=== PATIENT | female | born 1975 | race Two or more races ===

== ENCOUNTER 2020-06-24 20:00 | Emergency (ER) | payer SELFPAY ==
[~2020-06-24] VITALS: Ht 154.9 cm; Wt 75.0 kg
--- NOTE | 2020-06-24 20:15 | NUR ---
TO ED ROOM 31 PER WC. PT CURRENTLY VOMITING. C/O RT FLANK PAIN. STARTED TODAY. HX KIDNEY STONES. DENIES PAIN, BURNING, DIFFICULTY W/ URINATION. 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 TOOK PERCOCET AT 1855 (NOT PT'S RX). LAST ORAL INTAKE: 1100
[2020-06-24] MEDS ORDERED: SODIUM CHLORIDE FLUSH 10ML SYR IVF ONE (20:30)
[2020-06-24] MEDS ORDERED: ONDANSETRON 2MG/ML, 2ML IVPush ONE (20:30)
[2020-06-24] MEDS ORDERED: SODIUM CHLORIDE 0.9% 1,000ML IV ONE (20:30)
--- NOTE | 2020-06-24 20:30 | NUR ---
AMBULATORY TO [facility] W/OUT INCIDENT: GAIT STEADY.
--- NOTE | 2020-06-24 20:34 | NUR ---
RETURNED TO ED ROOM W/OUT INCIDENT. STATES UNABLE TO VOID, AT THIS TIME.
[2020-06-24] MEDS ORDERED: PLEASE ENTER ALLERGIES MC SCH (20:36)
[2020-06-24 20:37] LABS: BASOPHILS % (AUTO) 0 % (0-1); EOSINOPHILS % (AUTO) 1 % (1-7); LYMPHOCYTES % (AUTO) 14 % (22-44); MEAN CORPUSCULAR HEMOGLOBIN 30.2 pg (27.0-34.8); MEAN CORPUSCULAR HGB CONC 33.6 g/dL (32.4-35.8); MONOCYTES % (AUTO) 7 % (2-9); NEUTROPHILS % (AUTO) 79 % (42-75); PLATELET COUNT 264 x10^3/uL (130-400); RED BLOOD COUNT 4.43 x10^6/uL (3.82-5.3); RED CELL DISTRIBUTION WIDTH 14.4 % (9.6-15.2)
[2020-06-24 20:38] LABS: MD NO
[2020-06-24] MEDS ORDERED: MORPHINE SULFATE 4 MG/ML, 1ML ONE ×2 (20:39→22:04)
[2020-06-24] MEDS ORDERED: ONDANSETRON 2MG/ML, 2ML ONE (20:40)
[2020-06-24] MEDS: MORPHINE SULFATE 4 MG/ML, 1ML IVPush PRN ×2 (20:43→22:06)
--- NOTE | 2020-06-24 20:45 | NUR ---
NS HUNG, ZOFRAN AND MORPHINE GIVEN PER EMAR.
[2020-06-24 20:50] LABS: ALANINE AMINOTRANSFERASE 26 U/L (12-78); ALBUMIN 3.9 g/dL (3.4-5.0); ANION GAP 5 mmol/L (5-15); CALCIUM 9.5 mg/dL (8.5-10.1); CHLORIDE 111 mmol/L (98-107); CREATININE 0.76 mg/dL (0.55-1.02)
[2020-06-24 20:54] LABS: ALKALINE PHOSPHATASE 147 U/L (45-117); BILIRUBIN,TOTAL 0.3 mg/dL (0.2-1.0); TOTAL PROTEIN 8.6 g/dL (6.4-8.2)
--- NOTE | 2020-06-24 21:47 | NUR ---
PT LYING ON GURNEY, C/O PAIN; REQUESTING ADDITIONAL PAIN MED. NS INFUSING
--- NOTE | 2020-06-24 22:08 | NUR ---
SECOND DOSE OF MORPHINE 4MG IV GIVEN. IV PATENT; NS INFUSING W-O. SIDE RAILS UP X2, CALL LIGHT W/IN REACH. SPOUSE IN ROOM.
--- NOTE | 2020-06-24 22:12 | NUR ---
PT REPORT TO GLENNA Patel RN. PT CARE TRANSFERRED.
[2020-06-24 22:16] LABS: MICROSCOPIC AUTO
[2020-06-24 23:11] VITALS: BP 140/90
--- NOTE | 2020-06-24 23:12 | NUR ---
Patient and family given discharge instructions and they have confirmed that they understand the instructions. Rx reviewed with pt and spouse and understanding stated. Patient ambulatory with steady gait. states he is driving pt home. Pt instructed no to drive.
== END 2020-06-24 23:15 | disposition home or self-care (01) ==
LOC: ED 20:30
DX: N13.2 Hydronephrosis with renal and ureteral calculous obstruction (principal); R11.2 Nausea with vomiting, unspecified; R10.11 Right upper quadrant pain; R10.31 Right lower quadrant pain; M54.5 Low back pain
CPT/HCPCS: 36415; 74176; 80053; 81001; 83690; 84703; 85025; 96361; 96374; 96375; 96376; 99284; J2270; J2405; J7030